=== PATIENT | male | born 1985 | race Caucasian/White ===

== ENCOUNTER 2017-04-03 07:44 | Emergency (ER) | payer MEDICAID ==
[~2017-04-03] VITALS: Ht 175.3 cm; Wt 90.9 kg
[2017-04-03] MEDS ORDERED: ACETAMINOPHEN 500 MG TABLET ONE (08:05)
[2017-04-03] MEDS ORDERED: IBUPROFEN 800 MG TABLET ONE (08:05)
[2017-04-03] MEDS ORDERED: ACETAMINOPHEN 500 MG TABLET PO ONE (09:00)
[2017-04-03] MEDS ORDERED: IBUPROFEN 800 MG TABLET PO ONE (09:00)
[2017-04-03] MEDS ORDERED: SODIUM CHLORIDE 0.9% 1,000 ML IV ONE (09:30)
[2017-04-03] MEDS ORDERED: ONDANSETRON HCL 4 MG/2 ML VIAL IVP ONE (09:30)
[2017-04-03 09:33] LABS: INFLUENZA TYPE A NEGATIVE FOR TYPE A (NEGATIVE); INFLUENZA TYPE B NEGATIVE FOR TYPE B (NEGATIVE)
[2017-04-03 10:00] VITALS: BP 115/71
== END 2017-04-03 10:48 | disposition home or self-care (01) ==
LOC: EMS 07:46
DX: J11.1 Influenza due to unidentified influenza virus with other respiratory manifestations (principal)
CPT/HCPCS: 87804; 96361; 96374; 99284; J2405; J7030

== ENCOUNTER 2019-02-12 10:06 | Emergency (ER) | payer MEDICAID ==
[~2019-02-12] VITALS: Ht 167.6 cm; Wt 85.0 kg
[2019-02-12] MEDS ORDERED: LIDOCAINE 5% TRANSDERMAL PATCH TD ONE (11:30)
[2019-02-12] MEDS ORDERED: KETOROLAC TROMETHAMINE 30 MG/ML VIAL IM ONE (11:30)
[2019-02-12] MEDS ORDERED: CYCLOBENZAPRINE HCL 10 MG TABLET PO ONE (11:30)
[2019-02-12 12:22] VITALS: BP 125/70
== END 2019-02-12 13:00 | disposition home or self-care (01) ==
LOC: EMS 10:08
DX: M54.6 Pain in thoracic spine (principal)
CPT/HCPCS: 71045; 96372; 99283; J1885

== ENCOUNTER 2020-11-18 14:01 | Emergency (ER) | payer MEDICAID ==
[~2020-11-18] VITALS: Ht 172.7 cm; Wt 81.0 kg
[2020-11-18 15:15] VITALS: BP 128/74
== END 2020-11-18 15:24 | disposition home or self-care (01) ==
LOC: EMS 14:01
DX: S09.90XA Unspecified injury of head, initial encounter (principal); W19.XXXA Unspecified fall, initial encounter; Y93.89 Activity, other specified; Y92.89 Other specified places as the place of occurrence of the external cause; Y99.8 Other external cause status
CPT/HCPCS: 70450; 99284

== ENCOUNTER 2022-01-14 15:35 | Emergency (ER) | payer MEDICAID ==
[~2022-01-14] VITALS: Ht 177.8 cm; Wt 85.0 kg
[2022-01-14] MEDS ORDERED: FLUORESCEIN SODIUM 1 MG STRIP ONE (17:15)
[2022-01-14] MEDS ORDERED: ACET-2080 PO (17:32)
[2022-01-14] MEDS ORDERED: ERYTHROMYCIN 0.5% 3.5 GM TUBE OPHTHALMIC OINTMENT OD ONE (17:45)
[2022-01-14 17:59] VITALS: BP 125/70
== END 2022-01-14 18:01 | disposition home or self-care (01) ==
LOC: EMS 15:45
DX: T15.11XA Foreign body in conjunctival sac, right eye, initial encounter (principal); X58.XXXA Exposure to other specified factors, initial encounter; Y92.89 Other specified places as the place of occurrence of the external cause; Y93.89 Activity, other specified; Y99.8 Other external cause status
CPT/HCPCS: 99283